=== PATIENT | male | born 2005 ===

== ENCOUNTER 2025-03-19 15:34 | Inpatient (IN) | payer MEDICAID, SELFPAY ==
--- OUTSIDE RECORDS SUMMARY | 2025-03-17 20:20 | XMS_ITS | Encounter Summary ---
Author Organization [facility] Address [address] [address] Care Team Providers Care Auto Top Mechanic Name Role Phone No, Pcp Primary Care Provider Unavailabl e Reason for Visit * Reason Comments Psychiatric Evaluation Encounter Details Date Type Department Care Team (Late st Contact Info) Description 03/17/2025 8:20 PM EDT - 03/19/2025 12:51 PM EDT Emergency [facility] Emergency Medicine [address] [place] [phone] Charlie Muhammad MD [address] [place] [phone] Sade Millard MD [address] [place] [phone] Allison Hunt MD [address] [place] [phone] Anxiety (Primary Dx) Discharge Disposition: Psychiatric Hospital Social History Tobacco Use Types Packs/Day Years Used Date Smoking Tobacco: Never Assessed Humiliation, Afraid, Rape, and Kick questionnair e Answer Date Recorded Within the last year, have y ou been afraid of your partner or ex-partner? No 03/17/2025 Emotionally Abused Not on file 03/17/2025 Physically Abused Not on file 03/17/2025 Sexually Abused Not on file 03/17/2025 Sex and Gender Information Value Date Recorded Sex Assigned at Not on file Legal Sex Male 3:23 AM EST Gender Identity Not on file Sexual Orientation Not on file documented as of this encounter Last Filed Vital Signs Vital Sign Reading Time Taken Comments Blood Pressure 123/76 03/19/2025 8:16 AM EDT Pulse 71 03/19/2025 8:16 AM EDT Temperature 36.4 C (97.6 F) 03/19/2025 8:16 AM EDT Respiratory Rate 16 03/19/2025 8:16 AM EDT Oxygen Saturation 98% 03/18/2025 9:54 PM EDT Inhaled Oxygen Concentration - - Weight - - Height - - Body Mass Index - - documented in this encounter Progress Notes Only the most recent of 4 notes is shown. * Digna Miller - 03/19/2025 9:52 AM EDT Followed up with [facility] who had been reviewing pt last night. They had requested more info on [facility] (U-tox, any meds, EKG). U-tox added to [facility] however [place] is unable to admit anyone else today. Insurance still inactive. documented in this encounter ED Notes Only the most recent of 13 notes is shown. * Luann Christy RN - 03/19/2025 8:18 AM EDT Patient assessment note: awake and alert at this time Assumed care of pt at 7 am. Pt calm, cooperative, INPT BS cont Luann Christy RN 03/19/25 0820 documented in this encounter Miscellaneous Notes * Discharge Note - Allison Hunt MD - 03/19/2025 11:41 AM EDT ED PROFESSIONAL / OBSERVATION DISCHARGE NOTE Freddie Irizarry is a 19 y.o. male who was placed into observation. Please refer to H&P from the date of observation initiation. ED Events Date/Time Event User Comments 03/18/25 0013 Behavioral Health Observation FRANKY CHARLIE Barnhart Power in ED Behavioral Health Observation - [[id number]] 03/18/25 09 ED Prof BH OBS Note Filed ALLISON HUNT PROGRESS filed by Allison Hunt MD 03/19/25 0126 ED Prof BH OBS Note Filed CECILY MIRANDA PROGRESS filed by Cecily Miranda MD 03/19/25 0644 Behavioral Health Observation LUIZ NARVAEZ -- Patient accepted to [facility] Plan: Follow-up instructions and findings during the observation stay have been communicated to thepatient. Based on the patient's assessment and response to treatment, arrangements have been made for the patient following the observation period as per selected ED disposition. Time spent managing discharge: 30 minutes or less. * Plan of Care - Digna Miller - 03/19/2025 10:34 AM EDT Accepted to [facility] at [address] Imtiaz Bullard Accepting facility will call here for nurse to nurse Pt should arrive today 03/19/25 at 1330 * Initial Evaluation - Nedfabrice Connor - 03/18/2025 8:41 AM EDT Initial Evaluation [facility] Patient Name: Freddie Irizarry : 2005 Assessment Date: 03/18/25 Language: Bhutanese Means of Arrival: ambulance Present in Session: patient and fdc through the interview, the pt's Grandmother joined. Communication Factors: none Referral Source: Pt was BIBA from home to [facility] after his GF called 911 from [place]. Referral Source Contact: Girlfriend- Sadie Mariam: [phone] Additional Sources of Information: Grandmother: Christine Yamileth [phone] Chief Complaint: I don't feel like I need to be kept. I can go home with my Grandma. I did tell her if I wasn't with her I wouldn't be with anyone but adamantly denies any SI remark whatsoever. History of Present Illness: Pt is a 19yo male with a diagnostic history of ADHD and MJ use who was BIBA to [facility] ED on a section 12 after his girlfriend called reporting the pt wanted to kill himself. EMS reportedly went to the wrong address and the pt reportedly continued to make SI threats stating he was going to slit his wrist . Pt's girlfriend and children live in [place] but due to arguments, the pt relocated to [facility] and is living w/his Grandmother. The pt adamantly denies SI/HI/AVH and denies any psych hx. Precautions Precautions Initiated/Maintained: Moderate fall risk [place] Screen (C-SSRS) Risk Level: C-SSRS Risk Level: 0 Low Risk (0.5-1.5) Moderate Risk (2-4.5) High Risk (5+) Suicide Inquiry: Suicidal Thoughts (Frequency, Duration, Intensity/Controllability): Pt adamantly denies any currentor recent SI or passive SI. Suicide Plan (timing, location): Pt denies. Pt denies making any threats about cutting his wrists. Availability of Means: Pt denies Preparatory Acts/Behaviors: Pt denies (however girlfriend reports he called her with the shower running and said he was making the first cut Intent (lethality): Pt denies but GF reports pt was insistent. History of Attempts: Yes If Yes, Describe (type of attempt including interrupted, self-interrupted, when, precipitants, means, level of impulsivity, intent, outcome): Pt reports hx of SATT and SIB at 9yo. Risk Behaviors: Past and Current Risk/Safety Assessment Behaviors Risk History and Active Aggressive/Assaultive Not active and denies history, Not active, and Past pt reports past hx when younger Homicidal Ideation/Attempts Not active and denies history Self-Injurious Behavior Not active and denies history, Not active, and Past Pt reports hx of SATT and SIB at 9yo Sexualized Behavior Not active and denies history Elopement Not active and denies history Fire Setting Not active and denies history Property Destruction Not active and Past at 9yo Cruelty to Animals Not active and denies history Pica/Swallowing objects Not active and denies history Somatic Functioning Sleep: unremarkable Weight: no change Appetite: no change Eating Behaviors: unremarkable Energy: developmentally appropriate Additional History Past Psychiatric Care Inpatient Hospitalization: Location: Pt reports hx of 3 admissions in [facility] and 1 in [place] Date oflast hospitalization: last in 2014 # of times: 5 Past Psychiatric Medications: No previous history of past psychiatric medication use Current Treatment for Psychiatric Care Pt denies any current outpt providers or PCP Trauma History No reported history of trauma Social History Lives with: Grandmother x1.5 months. Education Status: high school Employment: Pt reports he is interviewing for jobs Number of Children: 0 Ages of Children: Pt reports his GF has a 4yo daughter that he helped raise. Family Circumstances/Stressors: Pt was living w/his GF of 1.5 years up until a month ago. Pt relocated to stay w/his Grandmother in [facility]. Previous to this he was living in [place] w/his mother for 7 months and also reports hx of living in [place] and [place]. Developmental History: Appropriate Legal Issues: None Sexual History Sexual Orientation: Is your gender identify the same as the one you were assigned at : Significant Substance Use History Pt reports he smoke MJ 3-4x/day. Pt reports rare etoh use where he will have a beer but cannot recall last time. Denies hx of drug use. Family History: No family history on file. No current facility-administered medications for this encounter. No current outpatient medications on file. Side effects noted: N/A Allergies: Not on File PCP: Pcp MD Brittany There is no problem list on file for this patient. No past medical history on file. Mental Status Examination: Pt seen via telepsych. Pt confirmed ID via last name and . Pt observed to be sitting up, alert, well kempt. Pt's Grandmother joined telepsych for portion towards the end. Appearance/behavior: Appears stated age. Well groomed. Good eye contact. Manner: Calm. Cooperative. Orientation: Oriented x 3. Time[address]. Person. Situation. Musculoskeletal: Gait and station normal. Motor: Unremarkable. Speech: Normal volume. Normal rhythm Normal rate Language: Able to repeat words Able to name objects Mood: Pt denies any issues with depression or anxiety. Pt states that sometimes I get a little angry . Affect: Irritable. Thought process: Linear. Logical. Associations: Intact. Thought content: Unremarkable. Perception: No hallucinations. Suicidal ideation: Denies. Pt denies any current or recent SI or passive SI. Pt denies making any SI statements or anything that could be interpreted as such. He states he did say if he wasn't going to be with her, he wouldn't be with anybody. Pt is adamant, I didn't say all that crazy [expletive]that she said. This is crazy. Homicide ideation: Denies. Insight: Developmentally appropriate. Judgement: Developmentally appropriate. Recent and remote memory: Intact long and short term memory. Attention and concentration: Developmentally appropriate. Fund of knowledge: Adequate. This program writer spoke to the pt's Grandmother via telepsych: She denies any MH or SI concerns. She was not home at the time of his call but reports she was shocked when she got word of what was going on. She denies any known hx of SI or SATT. This program writer spoke to the pt's GF in [place]- Sadie Becerra of [employer] in [facility] [phone]: He said he was going to slit his wrists last night during an argument. He asked to say good bye to the child and to tell her that he loved her. He said he was going to slit his wrists. She has a recording of him with the shower running, I'm making the first cut now. Sadie reports that the pt has a bus ticket reportedly purchased for Saturday and insists he is going there but she says she will not be going back with him. Hx of threatening SATT with a knife- once sat in a shower with a giant blade for 3 hours and thentold her I could have killed myself. He never did anything, just told her after. She reports he has said this in the past in the context of one of his girlfriend. No hx of SATT but has been prone to violent outbursts as a minor. (She reports pt's mother had him committed for violent outbursts and was treated in a facility.) She suspects he has untreated mental health and he self-medicates with marijuana. Sadie sent this program writer 9 screenshots of text messages: Without you I have no one You are my forever I'm doing it when they leave (GF previously told this program writer that he told hereover the phone that as soon as the police leave he was going to carry out his plan to slit his wrists and kill himself.) U were my forever witout u there is nothing I just want to tell my child byismael young My last request is to speak to my daughter on last timr [sic] Shell be fine she's getting old she wont reembee ne [sic] I'm over this conversation my mind is made up Im making the first cut I love you sadie Nvm I love you sadie and I always will. Goodbye till me meet again Risk/Protective Factors: General: Male Access to a Gun: No Psychiatric Symptoms: Currently hopeless* Suicidal Behavior: Lethal means available* Harm to Others: None Elopement Risk: None Protective Factors: Family/friends/caregivers willing and able to support patient Adequacy of evaluation and feedback: Have you interviewed informant other than patient?: Yes Are supportive adults available to watch carefully for 24 hours and ensure a follow-up appointment?: No* Is family prepared to remove or secure pills, guns, and other weapons from the home?: Yes Suicide Risk Level: High Aggression Risk Level: Low Elopement Risk Level: Low Formulation/Rationale for Level of Care: Due to the detailed SI plan and repeated expressed intent shared via screenshots of text messages from the girlfriend, the pt is an imminent risk to self and will be held on an involuntary section 12. 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 Client meets level of care Disposition: Inpatient involuntary bed search, section 12, safety protocol in ED. Legal Status: Section 12 Authorization: none I have counseled the patient/family about: the need for supervision until the follow up Disposition and treatment plan options discussed with patient, parent, and/or legal guardian: Yes. Does the patient have any Advanced Psychiatric Directives? No Case, disposition and treatment plan discussed with solar installation supervisor: Yes, Dr. Hunt at 9:25am Total Time: 1.5 hours Signature: Ned Connor [facility] Electronic Signature * ED Update - Sade Millard MD - 03/18/2025 8:25 AM EDT Patient is signed out to me the night of March brought in by police on a section 12 for suicidal statements. The patient is pending crisis evaluation. No medications have been reconciled at this time. No management issues through the night. Crisis evaluation and disposition are pending. documented in this encounter Plan of Treatment Scheduled Orders Name Type Priority Associated Diagnoses Orde r Schedule Urinalysis with reflex to culture Clean Catch Microbiology STAT STAT for 1 Occurrences starting 03/17/2025 until 03/17/2025 documented as of this encounter Procedures Procedure Name Priority Date/Time Associated Diagnosis Comments URINALYSIS WITH REFLEX TO CULTURE Routine 03/17/2025 9:25 PM EDT URINE DRUG SCREEN STAT 03/17/2025 9:2 5 PM EDT COMPREHENSIVE METABOLIC PANEL STAT 03/17/2025 9:25 PM EDT HC AUTO CBC WITH DIFF STAT 03/17/2025 9:25 PM EDT CONVERSION BUPRENORPHINE SUBOXONE SCREEN Routine 03/17/2025 9:25 PM EDT documented in this encounter Results * (ABNORMAL) Urinalysis with reflex to culture (03/17/2025 9:25 PM EDT) Color, Ur Dark Yellow yellow 03/17/2025 9:50 PM EDT [facility] Appearance, Ur Clear slightly cloudy 03/17/2025 9:50 PM EDT [facility] Glucose, Ur negative negative mg/dL 03/17/2025 9:50 PM EDT [facility] Bilirubin, Ur Small(A) negative mg/dL 03/17/2025 9:50 PM EDT [facility] Ketones, Ur 15(A) negative mg/dL 03/17/2025 9:50 PM [facility] Specific [place], Ur 1.031(A) 1.010 - 1.030 03/17/2025 9:50 PM [facility] Blood, Ur negative negative mg/dL 03/17/2025 9:50 PM [facility] pH, Ur 5.5 5.0 - 8.0 03/17/2025 9:50 PM [facility] Protein, Ur 30(A) negative mg/dL 03/17/2025 9:50 PM [facility] Urobilinogen, Ur 1.0 normal E.U./dL 03/17/2025 9:50 PM [facility] Comment:@UF REFLEX Nitrite Level, Ur negative negative 03/17/2025 9:50 PM [facility] Leukocytes Est, Ur Trace(A) negative mg/dL 03/17/2025 9:50 PM [facility] RBC, Ur None Seen 0 - 2 /HPF 03/17/2025 9:52 PM [facility] WBC, Ur 0-5 0 - 5 /HPF 03/17/2025 9:52 PM [facility] Bacteria, Ur None Seen none seen /HPF 03/17/2025 9:52 PM [facility] Squam Epithel, Ur None Seen absent /HPF 03/17/2025 9:52 PM [facility] Hyaline Casts, Ur 0-5 0 - 2 /LPF 03/17/2025 9:52 PM [facility] 03/17/2025 9:25 PM EDT 03/17/2025 9:45 PM EDT us Sara Good MD URINE ORDERABLES Edited Result - Final [facility] [address] [place] [id number], [facility] [address] [place] [phone] * Buprenorphine Suboxone Screen (03/17/2025 9:25 PM EDT) Buprenorphine Suboxone Scrn None Detected 03/17/2025 10:02 PM EDT [facility] 03/17/2025 9:25 PM EDT 03/17/2025 9:45 PM EDT us Sara Good MD LAB BLOOD ORDERABLES Final Resul t [facility] [address] [place] [address], [facility] [address] [place] [address] * (ABNORMAL) Urine Drug Screen (03/17/2025 9:25 PM EDT) Amphetamine Scrn, Ur None Detected 03/17/2025 10:02 PM [facility] Benzodiazepine Screen, Urine None Detected 03/17/2025 10:02 PM [facility] Cannabinoid Screen, Urine POSITIVE SCREEN(A) 03/17/2025 10:02 PM [facility] Cocaine Screen, Ur None Detected 03/17/2025 10:02 PM [facility] Fentanyl Screen, Urine None Detected 03/17/2025 10:02 PM [facility] Comment: This test was developed and its performance characteristics determined by the Clinical Biochemistry Lab. It has not been cleared or approved by the US Food and Drug Administration but the CLIA regulations permit its development under the laboratory license. This test and method is defined in the clinical lab guide and should not be regarded as investigational or research use only. Methadone Screen, Urine None Detected 03/17/2025 10:02 PM [facility] Opiate Screen, Urine None Detected 03/17/2025 10:02 PM [facility] Comment: Note: Drug of abuse immunoassay results are from screening methods. Positive screening results that are not confirmed are reported as POSITIVE SCREEN. If confirmatory testing is desired, it must be requested as a separate order to the Toxicology Lab WITHIN 5 DAYS of sample collection. Unconfirmed screening results should only be used for medical purposes. Oxycodone Scrn, Ur None Detected 03/17/2025 10:02 PM [facility] Urine 03/17/2025 9:25 PM EDT 03/17/2025 9:45 PM EDT us Sara Good MD URINE ORDERABLES Final Result [facility] [address] [place] [address], [facility] [address] [place] [address] * (ABNORMAL) Comprehensive Metabolic Panel (03/17/2025 9:25 PM EDT) Glucose 94 67 - 99 MG/DL 03/17/2025 10:06 PM [facility] BUN 8 6 - 24 MG/DL 03/17/2025 10:06 PM [facility] Creat Level 0.84 0.64 - 1.27 MG/DL 03/17/2025 10:06 PM [facility] eGFR >120 >90 mL/min/1.7 3m exp2 03/17/2025 10:06 PM [facility] Comment:Calculated using the CKD-epi 2020 race-free equation. BUN Creatinine Ratio 03/17/2025 10:06 PM [facility] Sodium 143 135 - 145 mEq/L 03/17/2025 10:06 PM [facility] Potassium 3.5(L) 3.6 - 5.1 mEq/L 03/17/2025 10:06 PM [facility] Chloride 105 98 - 110 mEq/L 03/17/2025 10:06 PM [facility] CO2 21 20 - 29 mEq/L 03/17/2025 10:06 PM [facility] Anion Gap 17(H) 3 - 13 03/17/2025 10:06 PM [facility] Albumin 4.9 3.4 - 5.1 G/DL 03/17/2025 10:06 PM [facility] Alkaline Phosphatase 99 40 - 129 U/L 03/17/2025 10:06 PM [facility] ALT 30 14 - 63 U/L 03/17/2025 10:06 PM [facility] AST (SGOT) 25 15 - 41 U/L 03/17/2025 10:06 PM [facility] Bilirubin, Total 0.7 0.1 - 1.2 mg/dL 03/17/2025 10:06 PM [facility] Calcium 9.9 8.4 - 10.2 MG/DL 03/17/2025 10:06 PM T [facility] Protein, Total 7.5 6.1 - 8.3 g/dL 03/17/2025 10:06 PM [facility] Blood 03/17/2025 9:25 PM EDT 03/17/2025 9:45 PM EDT us Sara Good MD LAB BLOOD ORDERABLES Final Resul t [facility] [address] [place] [address], [facility] [address] [place] [address] * (ABNORMAL) CBC with Diff (03/17/2025 9:25 PM EDT) WBC 14.1(H) 4.2 - 10.0 [id number]/L 03/17/2025 9:50 PM [facility] RBC 5.88(H) 4.50 - 5.60 [id number]/ L 03/17/2025 9:50 PM [facility] Hemoglobin 15.5 13.4 - 16.0 g/dL 03/17/2025 9:50 PM [facility] Hematocrit 48.7 41.2 - 51.0 % 03/17/2025 9:50 PM [facility] MCV 82.8(L) 85.2 - 100.2 fL 03/17/2025 9:50 PM [facility] MCH 26.4(L) 27.0 - 32.4 pg 03/17/2025 9:50 PM [facility] MCHC 31.8 29.5 - 34.2 g/dL 03/17/2025 9:50 PM [facility] RDW 12.9 11.8 - 14.4 % 03/17/2025 9:50 PM [facility] Platelets 312 168 - 382 [id number]/L 03/17/2025 9:50 PM [facility] MPV 9.7 9.6 - 12.5 fL 03/17/2025 9:50 PM [facility] NRBC % 0.0 -1.0 - 0.0 % 03/17/2025 9:50 PM [facility] NRBC (absolute) 0.0 [id number]/L 9:50 PM [facility] Immature Granulocytes % 0.2 % 03/17/2025 9:50 PM [facility] Immature Granulocytes (absolute) 0.0 0.0 - 0.1 [id number]/L 03/17/2025 9:50 PM [facility] Seg Neutrophil % 72.8 % 03/17/20 9:50 PM [facility] Seg Neutrophil (absolute) 10.3(H) 1.9 - 6.7 [id number]/L 03/17/2025 9:50 PM [facility] Lymphocyte % 20.2 % 03/17/2025 9:50 PM [facility] Lymphocyte (absolute) 2.9 1.0 - 3.3 [id number]/L 03/17/2025 9:50 PM [facility] Monocyte % 6.2 % 03/17/2025 9:50 PM [facility] Monocyte (absolute) 0.9 0.3 - 0.9 [id number]/L 03/17/2025 9:50 PM [facility] Eosinophil % 0.3 % 03/17/2025 9:50 PM [facility] Eosinophil (absolute) 0.0 0.0 - 0.4 [id number]/L 03/17/2025 9:50 PM [facility] Basophil % 0.3 % 03/17/2025 9:50 PM [facility] Basophil (absolute) 0.0 0.0 - 0.1 [id number]/L 03/17/2025 9:50 PM [facility] 03/17/2025 9:25 PM EDT 03/17/2025 9:45 PM EDT us Sara Good MD LAB BLOOD ORDERABLES Final Resul t [address] [place] [address], [facility] [address] [place] [address] documented in this encounter Visit Diagnoses Diagnosis Anxiety- Primary Anxiety state, unspecified documented in this encounter Care Teams Auto Top Mechanic Relationship Specialty Start Date End Date No, PcpMD No Address [address] [address] PCP - General Internal Medicine 03/17/25 documented as of this encounter
[2025-03-19 15:43] VITALS: BMI 31.5
--- OUTSIDE RECORDS SUMMARY | 2025-03-19 17:45 | XMS_ITS | Clinical Summary ---
Author Organization [facility] Address [address] [place] [address] Phone Care Team Providers Care Supervisor Molding Name Role Phone Unknown, Unknown MD Primary Care Provider Unavai lable Allergies No known active allergies Medications albuterol 90 mcg/actuation inhaler Inhale 1 puff into the lungs every 4 (four) hours as needed. 2 Inhaler 07/15/2019 Active Active Problems Problem Noted Date Diagnosed Date Mood disorder 06/18/2013 Overview (08/27/2014): Mood disorder Attention deficit hyperactivity disorder, combin ed type 09/03/2012 Overview (08/27/2014): Attention deficit hyperactivity disorder, combined type Obesity 08/18/2008 Overview (08/27/2014): Obesity Asthma 02/04/2006 Overview (08/27/2014): Asthma; *See attached note in LMR; mild intermittent Resolved Problems Problem Noted Date Diagnosed Date Resolved Date Constipation 08/20/2011 05/07/2019 Overview (08/27/2014): Constipation Immunizations Immunization Administration Dates Next Due DTaP, unspecified formulation 09/05/2009, 006,2004 DTaP-Hep B-IPV 2004,2004 [id number] FORMULATION 10/20/2009,03/0 07/2009 HPV9 05/06/2019,04/28/2018 Hepatitis A, ped/adol, 2 dose 02/06/2016, 015 Hepatitis B, unspecified formulation 2004 Hib, unspecified formulation 08/24/2005, 2004,2004,07/23 INFLUENZA, SPLIT VIRUS, TRIV ALENT W/ PRESERVATIVE IM 04/22/2012 Influenza Quadrivalent Prese rvative Free IM 09/09/2020,05/06/2019,03/20/2013 Influenza Quadrivalent w/ Pr eservative IM 03/23/2015 Influenza, Unspecified Formulation 08/20,06/15/2010,09/05/2009,06/09,05/24/2006,08/15/2005,05/24/2005 MMR 09/05/2009,05/24/2005 Meningococcal MCV4P 09/09/2020,02/06/2016 Pneumococcal conjugate, PCV 7 08/24/2005 ,2004,2004,07/23 Polio, Unspecified Formulation 08/18/2008,2004 Tdap 02/06/2016 Varicella 08/18/2008,05/24/2005 Family History Medical History Relation Comments Diabetes Maternal Grandmother ADD / ADHD Unspecified attention defici t disorder; Mat uncle. All men on mother's side of family haven't graduated from . Relation Status Comments Maternal Grandmother Unspecified Social History Tobacco Use Types Packs/Day Years Used Date Smoking Tobacco: Never Smokeless Tobacco: Never Alcohol Use Standard Drinks/Week Comments Never 0 (1 standard drink = 0.6 oz pur e alcohol) Child or Family Care Answer Date Record ed Do you have problems with on e of the following making it difficult for you to work, study, or receive health care? No 05/06/2019 Education Answer Date Recorded Are you interested in more education? Not on quinn e 11/02/2022 Are you concerned about learning? Not on file 11/02/2022 No 11/02/2022 No 11/02/2022 Food Answer Date Recorded Within the past 6 months we worried whether our food would run out before we got money to buy more. Never True 05/06/2019 Within the past 6 months the food we bought just didn't last and we didn't have enough money to get more. Never True 9 Paying for Meds Answer Date Recorded Do you have trouble paying f or your child s medicines? No 05/06/2019 Paying Utility Bills Answer Date Record ed Do you have trouble paying your heating or elect ricity bill? No 05/06/2019 Transportation Answer Date Recorded Has the lack of transportati on kept you from bringing your child to medical appointments or from getting your child s medications? No 05/06/2019 Digital Access Answer Date Recorded No 12/03/2022 No 12/03/2022 Reliable internet access at home? Not on file 12/03/2022 Device with a working camera? Not on file Sex and Gender Information Value Date Recorded Sex Assigned at Not on file Legal Sex Male 6:23 PM EDT Gender Identity Not on file Sexual Orientation Not on file Last Filed Vital Signs Vital Sign Reading Time Taken Comments Blood Pressure 124/72 09/09/2020 2:40 PM EST Pulse 110 06/23/2019 11:33 AM EST Temperature 36.5 C (97.7 F) 06/23/2019 11:33 AM EST Respiratory Rate 24 06/23/2019 11:3 3 AM EST Oxygen Saturation 96% 06/23/2019 11: 33 AM EST Inhaled Oxygen Concentration - - Weight 131.2 kg (289 lb 3.2 oz) 09/09/2020 2:40 PM EST Height 184.2 cm (6' 0.5 ) 09/09/2020 2:40 PM EST Body Mass Index 38.68 09/09/2020 2:40 PM EST Plan of Treatment Health Maintenance Due Date Last Done Comments PEDIATRIC ASTHMA CONTROL DENICE T (ACT) 2008 SMOKING Hx and SMOKELESS TOB ACCO SCREENING 2017 MENINGOCOCCAL VACCINES (B) ( 1 of 2 - Standard) 2020 ADOLESCENT UNIVERSAL LIPID SCREENING 2021 05/15/2019, 03/23/2015 DEPRESSION SCREENING 09/09/2021 09/09/2020, 09/10/19 21 DEVELOPMENTAL/BEHAVIORAL SCR EENING (PHQ, PSC, or SWYC) 09/09/2021 09/09/2020, 09/09/2020, 09/09/2020 HEPATITIS C SCREENING 2022 HIV ONE-TIME SCREENING (18-6 5 YEARS) 2022 PNEUMOCOCCAL VACCINES (0-49 years) (1 of 2 - PCV) 2023 08/24/2005, 2004, 2004, Additional history exists INFLUENZA VACCINE (#1) 2025 , 05/06/2019, 03/23/2015, Additional history exists COVID-19 VACCINE (1 - 2023-2 5 season) 2025 COMBINED DTaP,Tdap,Td (7 - T d or Tdap) 02/05/2026 02/06/2016, 09/05/2009, 08/24/2005, Additional history exists HIB VACCINES Completed 08/24/2005, 11/05, 2004, Additional history exists VARICELLA VACCINES Completed 08/18/2008, 05/24/2005 MMR VACCINES Completed 09/05/2009, 05/24/2005 HEPATITIS A VACCINES Completed 02/06/2016, 03/23/20 15 HPV VACCINES Completed 05/06/2019, 04/28/2018 MENINGOCOCCAL VACCINES (ACWY) Completed 09/09/2020, 02/06/2016 Medical Devices Not on file Procedures Procedure Name Priority Date/Time Associated Diagnosis Comments LIPID PANEL WITH REFLEX TO DIRECT LDL Routine 05/15/2019 7:59 AM EST from Last 3 Months or Most Recently Relevant to Health Maintenance Results * (ABNORMAL) Lipid Panel With Reflex To Direct LDL (05/15/2019 7:59 AM EST) Cholesterol Total 168 <170 mg/dL [email or web address] HDL Cholesterol 36(L) >45 mg/dL [facility] Triglycerides 90(H) <90 mg/dL [facility] LDL Cholesterol 113(H) <110 mg/dL (calc) [facility] Comment: LDL-C is now calculated using the Hardy calculation, which is a validated novel method providing better accuracy than the Friedewald equation in the estimation of LDL-C. Mike MOJICA et al. VAISHALI. 2013;310(19): 3699-5039 (http://education.[employer]Opower/faq/ROK316) Chol/HDLC Ratio 4.7 <5.0 (calc) [facility] Non HDL Cholesterol 132(H) <120 mg/dL (calc) [facility] Comment: For patients with diabetes plus 1 major ASCVD risk factor, treating to a non-HDL-C goal of <100 mg/dL (LDL-C of <70 mg/dL) is considered a therapeutic option. 05/15/2019 7:59 AM EST 05/15/2019 7:59 AM EST Narrative [facility] - 05/15/2019 9:47 PM EST FASTING:YES FASTING: YES Resulting Agency Comment Performing Organization Information: Site ID: [id number] Name: [facility] Address: [address] [place] [address], [place] [address] Director: Shoaib Romano MD Reji Stewart MD LAB BLOOD ORDERABLES Final Res ult [facility] [place] [address],[place] [address], [facility] from Last 3 Months or Most Recently Relevant to Health Maintenance Insurance [facility] Care Teams Supervisor Molding Relationship Specialty Start Date End Date Unknown, Unknown, PCP - General 10/02/23 Additional Source Comments The information contained in this document represents components of the legal health record. It is not the complete legal health record.[facility]
--- OUTSIDE RECORDS SUMMARY | 2025-03-19 17:45 | XMS_ITS | Patient Health Record ---
Author Organization [facility] Address [address] [place] [address] Care Team Providers Care Business Segment Manager Name Role Phone JayeshfallonReji Primary Care Provider Kavya Kaplan Unavailable [phone] Reason For Referral No Information Plan Of Treatment No Information Insurance Providers Payer Name Payer Address Payer Phone Subscriber Number Group Number Insured Name Patient Relationship to Insured Coverage Start Date Coverage End Date [facility] [address] [place] [address] [id number] Freddie Irizarry Self - patient is the insured 4 [place] Medicaid [address] [place] [address] [id number] Freddie Irizarry Self - patient is the insured 4
--- OUTSIDE RECORDS SUMMARY | 2025-03-19 17:45 | XMS_ITS | Clinical Summary ---
Author Organization [facility] Address [address] [place] [address] Care Team Providers Care Fixed Income Manager Name Role Phone No, Pcp MD Primary Care Provider Unavailabl e Medications No known medications Encounters Date Type Department Care Team Description 03/17/2025 8:20 PM EDT - 03/19/2025 12:51 PM EDT Emergency [facility] Emergency Medicine [address] [place] [phone] Charlie Muhammad MD McCann, Erin, MD Howell, Nathan, MD Anxiety (Primary Dx) Discharge [facility]position: [facility] from Last 3 Months Social History Tobacco Use Types Packs/Day Years [...] EDT Inhaled Oxygen Concentration - - Weight 122.9 kg (271 lb) 11/07/2021 3:54 PM EDT Height 190.5 cm (6' 3 ) 11/07/2021 3:54 PM EDT Body Mass Index 33.87 11/07/2021 3:54 PM EDT Plan of Treatment Not on file Procedures Procedure Name Priority Date/Time Associated Diagnosis Comments URINALYSIS WITH REFLEX TO CULTURE Routine 03/17/2025 9:25 PM EDT CONVERSION BUPRENORPHINE SUBOXONE SCREEN Routine 03/17/2025 9:25 PM EDT URINE DRUG SCREEN STAT 03/17/2025 9:2 5 PM EDT COMPREHENSIVE METABOLIC PANEL STAT 03/17/2025 9:25 PM EDT HC AUTO CBC WITH DIFF STAT 03/17/2025 9:25 PM EDT from Last 3 Months Results * (ABNORMAL) Urinalysis with reflex to culture (03/17/2025 9:25 PM EDT) Color, Ur Dark Yellow yellow 03/17/2025 9:50 PM [facility] Appearance, Ur Clear slightly cloudy 03/17/2025 9:50 PM [facility] Glucose, Ur negative negative mg/dL 03/17/2025 9:50 PM [facility] Bilirubin, Ur Small(A) negative mg/dL 03/17/2025 9:50 PM [facility] Ketones, Ur 15(A) negative mg/dL 03/17/2025 9:50 PM [facility] Specific Yulan, Ur 1.031(A) 1.010 - 1.030 03/17/2025 9:50 PM [facility] Blood, Ur negative negative mg/dL 03/17/2025 9:50 PM [facility] pH, Ur 5.5 5.0 - 8.0 03/17/2025 9:50 PM [facility] Protein, Ur 30(A) negative mg/dL 03/17/2025 9:50 PM [facility] Urobilinogen, Ur 1.0 normal E.U./dL 03/17/2025 9:50 PM [facility] Comment:@UF REFLEX Nitrite Level, Ur negative negative 03/17/2025 9:50 PM [facility] Leukocytes Est, Ur Trace(A) negative mg/dL 03/17/2025 9:50 PM [facility] RBC, Ur None Seen 0 - 2 /HPF 03/17/2025 9:52 PM [facility] WBC, Ur 0-5 0 - 5 /HPF 03/17/2025 9:52 PM [facility] Bacteria, Ur None Seen none seen /HPF 03/17/2025 9:52 PM [facility] Squam Epithel, Ur None Seen absent /HPF 03/17/2025 9:52 PM [facility] Hyaline Casts, Ur 0-5 0 - 2 /LPF 03/17/2025 9:52 PM [facility] 03/17/2025 9:25 PM EDT 03/17/2025 9:45 PM EDT Sara Good MD URINE ORDERABLES Edited Result - Final [facility] [address] [place] [address], [facility] [address] [place] [address] * (ABNORMAL) Urine Drug Screen (03/17/2025 9:25 PM EDT) Amphetamine Scrn, Ur None Detected 03/17/2025 10:02 PM [facility] Benzodiazepine Screen, Urine None Detected 03/17/2025 10:02 PM [facility] Cannabinoid Screen, Urine POSITIVE SCREEN(A) 03/17/2025 10:02 PM [facility] Cocaine Screen, Ur None Detected 03/17/2025 10:02 PM [facility] Fentanyl Screen, Urine None Detected 03/17/2025 10:02 PM [facility] Comment: This test was developed [...] Screen, Urine None Detected 03/17/2025 10:02 PM [facility] Opiate Screen, Urine None Detected 03/17/2025 10:02 PM [facility] Comment: Note: Drug of abuse [...] Scrn, Ur None Detected 03/17/2025 10:02 PM [facility] Urine 03/17/2025 9:25 PM EDT 03/17/2025 9:45 PM EDT Sara Good MD URINE ORDERABLES Final Result [facility] [address] [place] [address], [facility] [address] [place] [address] * (ABNORMAL) Comprehensive Metabolic Panel (03/17/2025 9:25 PM EDT) Glucose 94 67 - 99 MG/DL 03/17/2025 10:06 PM [facility] BUN 8 6 - 24 MG/DL 03/17/2025 10:06 PM [facility] Creat Level 0.84 0.64 - 1.27 MG/DL 03/17/2025 10:06 PM [facility] eGFR >120 >90 mL/min/1.7 3m exp2 03/17/2025 10:06 PM [facility] Comment:Calculated using the CKD-epi 2020 race-free equation. BUN Creatinine Ratio 03/17/2025 10:06 PM [facility] Sodium 143 135 - 145 mEq/L 03/17/2025 10:06 PM [facility] Potassium 3.5(L) 3.6 - 5.1 mEq/L 03/17/2025 10:06 PM [facility] Chloride 105 98 - 110 mEq/L 03/17/2025 10:06 PM [facility] CO2 21 20 - 29 mEq/L 03/17/2025 10:06 PM [facility] Anion Gap 17(H) 3 - 13 03/17/2025 10:06 PM [facility] Albumin 4.9 3.4 - 5.1 G/DL 03/17/2025 10:06 PM [facility] Alkaline Phosphatase 99 40 - 129 U/L 03/17/2025 10:06 PM [facility] ALT 30 14 - 63 U/L 03/17/2025 10:06 PM [facility] AST (SGOT) 25 15 - 41 U/L 03/17/2025 10:06 PM [facility] Bilirubin, Total 0.7 0.1 - 1.2 mg/dL 03/17/2025 10:06 PM [facility] Calcium 9.9 8.4 - 10.2 MG/DL 03/17/2025 10:06 PM [facility] Protein, Total 7.5 6.1 - 8.3 g/dL 03/17/2025 10:06 PM [facility] Blood 03/17/2025 9:25 PM EDT 03/17/2025 9:45 PM EDT us Sara Good MD LAB BLOOD ORDERABLES Final Resul t [facility] [address] [place] [address], [facility] [address] [place] [address] * (ABNORMAL) CBC with Diff (03/17/2025 9:25 PM EDT) WBC 14.1(H) 4.2 - 10.0 b99ajp1/L 03/17/2025 9:50 PM [facility] RBC 5.88(H) 4.50 - 5.60 o14pil25/ L 03/17/2025 9:50 PM [facility] Hemoglobin 15.5 13.4 - 16.0 g/dL 03/17/2025 9:50 PM [facility] Hematocrit 48.7 41.2 - 51.0 % 03/17/2025 9:50 PM [facility] MCV 82.8(L) 85.2 - 100.2 fL 03/17/2025 9:50 PM [facility] MCH 26.4(L) 27.0 - 32.4 pg 03/17/2025 9:50 PM [facility] MCHC 31.8 29.5 - 34.2 g/dL 03/17/2025 9:50 PM [facility] RDW 12.9 11.8 - 14.4 % 03/17/2025 9:50 PM [facility] Platelets 312 168 - 382 p80uxc9/L 03/17/2025 9:50 PM [facility] MPV 9.7 9.6 - 12.5 fL 03/17/2025 9:50 PM [facility] NRBC % 0.0 -1.0 - 0.0 % 03/17/2025 9:50 PM [facility] NRBC (absolute) 0.0 m21mwx1/L 9:50 PM [facility] Immature Granulocytes % 0.2 % 03/17/2025 9:50 PM [facility] Immature Granulocytes (absolute) 0.0 0.0 - 0.1 m21ska4/L 03/17/2025 9:50 PM [facility] Seg Neutrophil % 72.8 % 03/17/20 9:50 PM [facility] Seg Neutrophil (absolute) 10.3(H) 1.9 - 6.7 y35yle9/L 03/17/2025 9:50 PM [facility] Lymphocyte % 20.2 % 03/17/2025 9:50 PM [facility] Lymphocyte (absolute) 2.9 1.0 - 3.3 h41enj5/L 03/17/2025 9:50 PM [facility] Monocyte % 6.2 % 03/17/2025 9:50 PM [facility] Monocyte (absolute) 0.9 0.3 - 0.9 b58gkz9/L 03/17/2025 9:50 PM EDT [facility] Eosinophil % 0.3 % 03/17/2025 9:50 PM EDT [facility] Eosinophil (absolute) 0.0 0.0 - 0.4 y57evy2/L 03/17/2025 9:50 PM EDT [facility] Basophil % 0.3 % 03/17/2025 9:50 PM EDT [facility] Basophil (absolute) 0.0 0.0 - 0.1 l92any2/L 03/17/2025 9:50 PM EDT [facility] 03/17/2025 9:25 PM EDT 03/17/2025 9:45 PM EDT us Sara Good MD LAB BLOOD ORDERABLES Final Resul t Performing Organization Address City/[facility] Co de Phone Number [facility] [address] [place] [address], [facility] [address] [place] [address] * Buprenorphine Suboxone Screen (03/17/2025 9:25 PM EDT) Buprenorphine Suboxone Scrn None Detected 03/17/2025 10:02 PM EDT [facility] 03/17/2025 9:25 PM EDT 03/17/2025 9:45 PM EDT us Sara Good MD LAB BLOOD ORDERABLES Final Resul t Performing Organization Address [facility] de Phone Number [facility] [address] [place] [address], [facility] [address] [place] [address] from Last 3 Months Insurance MEDICAID PENDING [facility] Care Teams Fixed Income Manager Relationship Specialty Start Date End Date No, MD Suma No Address [place] [address] PCP - General Internal Medicine 03/17/25
--- OUTSIDE RECORDS SUMMARY | 2025-03-19 17:45 | XMS_ITS ---
Author Name [facility] Organization Unknown Encounters Encounter Type Encounter Reason Primary Diagnosis Location Date Emergency Anxiety Anxiety [facility] Care Team Organization Name Specialty Phone Email Start Date End Da te [facility] 03/18/2025
--- OUTSIDE RECORDS SUMMARY | 2025-03-19 17:45 | XMS_ITS | Encounter Summary ---
Author Organization [facility] Address [address] [place] [address] Phone Care Team Providers Care Woodwind Instrument Repairer Name Role Phone Unknown, Unknown Primary Care Provider Reji Briceño MD Unavailable [phone] Reji Stewart MD Unavailable [phone] Reji Stewart MD Primary Care Provider [phone] Reji Stewart MD Unavailable [phone] Reji Stewart MD Primary Care Provider [phone] Reji Stewart MD Unavailable [phone] Unknown, Unknown Primary Care Provider Abhi coelho Encounter Details Date Type Department Care Team (Late st Contact Info) Description 01/06/2015 Community Orders [facility] Winnie Higuera MD [address] [place] [phone] [email or web address] Social History Tobacco Use Types Packs/Day Years Used Date Smoking Tobacco: Never Assessed Sex and Gender Information Value Date Recorded Sex Assigned at Not on file Legal Sex Male 6:23 PM EDT Gender Identity Not on file Sexual Orientation Not on file documented as of this encounter Plan of Treatment Not on file documented as of this encounter Visit Diagnoses Not on filedocumented in this encounter Care Teams Woodwind Instrument Repairer Relationship Specialty Start Date End Date Unknown, Unknown, PCP - General 12/18/14 03/24/19 Reji Stewart MD [address] [address] PCP - General Pediatrics 03/25/19 11/08/22 Reji Stewart MD [address] [place] [address] [place] [address] PCP - General 11/29/22 10/01/23 Unknown, Unknown, MD PCP - General 10/02/23 Reji Stewart MD [address] [place] [address] [place] [address] Historical LMR Provider 12/23/16 11/08/22 Reji Stewart MD [address] [place] [address] [place] [address] Insurance Assigned Provider 08/31/17 Reji Stewart MD [address] [place] [address] [place] [address] Insurance Assigned Provider 08/07/19 Reji Stewart MD [address] [place] [address] [place] [address] Insurance Assigned Provider 08/07/1912/15 documented as of this encounter Additional Source Comments The information contained in this document represents components of the legal health record. It is not the complete legal health record.[facility]
--- NOTE | 2025-03-19 18:48 | PC.ADMIT ---
Freddie is a 19 yr old male admitted to [facility] at approx 15:45 from [facility]. He was BIBA from home after his girlfriend called 911 from [place]. She was concerned because Freddie had been making suicidal threats to cut his wrists. Freddie is A&O x 4, calm and cooperative with the admission process. He appears anxious, is engaged with good eye contact, very pleasant & polite. He denies SI/HI/AVH and is able to contract for safety here on the unit. Freddie states he?d been living with his girlfriend and their two children in [place]. After recent relationship troubles he relocated to stay in [place] with his grandmother, while his gf & kids are staying in [place]. Current housing with grandmother is stable. Freddie endorses trauma history but declines to discuss detail. He states that his suicidal statements were just words. ?I was feeling desperate. She is my whole world and I feel like I?ve lost everything.?? Freddie denies medical history. ADHD is documented on transfer notes but he doesn?t take any rx?d medications. He drinks occasionally & smokes marijuana a few times/week. Tox screen positive only for cannabinoids. His skin check is unremarkable. Freddie was oriented to the unit & placed on 15 min safety checks.? Freddie signed in on a CV & subsequently signed a three day notice (which will be up 03/24). Freddie has settled in well to the unit, attended a group & ate dinner. He was later found in his room writing in a journal & crying. He stated ?I?m fine. Just going through a lot.?? Freddie brightened up & joined the milieu shortly after.
[2025-03-19 19:57] VITALS: BP 160/77; PULSE 113; RESP 18; TEMP 36.8; O2SAT 94
--- NOTE | 2025-03-20 06:29 | HO.PM.IMCN ---
History of Present Illness Data of Consult Service Date: 03/20/25 Requesting physician: Imtiaz Bullard Primary Care Provider: Unknown Physician HPI Reason for consult: medical H&P pt is a 19 yo male with no significant pmhx admitted to adult [facility] for SI. Patient reports vaping 2-3 times per week, marijuana use, social occasional alcohol. pt has no medical complaints currently. no chest pain, SOB, nausea,vomiting, rash, headache, abd pain or urinary sx. Review of Systems Constitutional: Constitutional: Denies body ache(s), Denies chills, Denies fatigue, Denies fever(s) and Denies headache(s) Eyes: Eyes: Denies change in vision ENT: Denies headache(s), Denies nasal congestion and Denies sore throat Cardiovascular: Cardiovascular: Denies chest pain, Denies rapid heart rate, Denies leg edema, Denies lightheadedness and Denies dyspnea Respiratory: Respiratory: Denies cough, Denies dyspnea and Denies wheezing Gastrointestinal: Gastrointestinal: Denies abdominal pain, Denies diarrhea, Denies nausea and Denies vomiting Genitourinary: Genitourinary: Denies hematuria, Denies dysuria and Denies urinary urgency Musculoskeletal: Musculoskeletal: Denies myalgias Integumentary/Breasts: Skin/Breast: Denies rash Neurologic: Denies confusion and Denies headache(s) Psychiatric: Psychiatric: Denies confusion Endocrine: Endocrine: Denies fatigue Hematologic/Lymphatic: Hematologic/Lymphatic: Denies easy bleeding and Denies easy bruising Allergic/Immunologic: Allergic/Immunologic: Denies wheezing PMFSH Functional capacity: independent ambulation Social History Household Members: Other Household Members Other:: lives with grandmother Do you presently have visiting nurse or other home services: No Patient Tobacco Use Status: Current someday Tobacco user Smoked in Last 30 Days: Yes e-Cigarette/Vaping Use: Currently Using Frequency of e-Cigarette/Vaping Use: few times/week Patient Interested in Nicotine Replacement: No Patient Given Instructions on How to Stop Smoking: No Second Hand Smoke Exposure: No Currently Displaying Signs/Symptoms of Drug Intoxication Withdrawal: No Have you been hit, kicked, punched, or otherwise hurt by someone within the past year? If so, by whom?: No Do you feel safe in your current relationship?: No Current Relationship Is there a partner from a previous relationship who is making you feel unsafe now?: No Are you made to feel afraid or neglected: No Advance Directives: No Advance Directives Information Provided: No Do you have thoughts of harming others: None Do you have a plan to hurt others: No Plan Recently lost weight without trying: No Eating poorly because of decreased appetite: No Nutrition Risks: No Nutritional Risk Poor oral hygiene: No Narrative: vapes nicotine 2-3x/week. smokes marijuana multiple times daily. social occasional etoh. Meds Allergies Allergy/AdvReac Type Severity Reaction Status Date / Time seafood Allergy Anaphylaxis Verified 03/19/25 17:02 Active Medications: Current Medications Acetaminophen (Acetaminophen 325 Mg Tablet) 650 mg PO Q6H PRN PRN Reason: Headache/Pain, Scale 1-10 Al Hydroxide/Mg Hydroxide (Magnesium Hydrox/Alum Hydrox 30 Ml Oral.Susp) 30 ml PO Q6H PRN PRN Reason: Heartburn/Nausea Hydroxyzine HCl (Hydroxyzine Hcl 25 Mg Tablet) 25 mg PO Q6H PRN PRN Reason: mild anxiety Magnesium Hydroxide (Milk Of Magnesia 30 Ml Oral.Susp) 30 ml PO DAILY PRN PRN Reason: Constipation Melatonin (Melatonin 3 Mg Tablet) 9 mg PO BEDTIME TAI Last Admin: 03/19/25 21:41 Dose: 9 mg Nicotine (Nicotine 21 Mg Patch.Td24) 21 mg TRANSDERMA DAILY PRN PRN Reason: nicotine craving Nicotine Polacrilex (Nicotine Polacrilex 2 Mg Gum) 2 mg BUCCAL Q2H PRN PRN Reason: Nicotine Cravings Olanzapine (Olanzapine 5 Mg Tablet) 5 mg PO BID PRN PRN Reason: agitation Trazodone HCl (Trazodone Hcl 50 Mg Tablet) 50 mg PO BEDTIME MRX1 PRN PRN Reason: Insomnia Home Medications ?Medication ?Instructions ?Recorded ?Confirmed ?Last Taken ?Type No Known Home Meds 03/19/25 03/19/25 Unknown History Physical Exam Vital Signs and Narrative: Vital Signs: Last Vital Signs Temp 98.2 F 03/19/25 19:57 Pulse 113 H 03/19/25 19:57 Resp 18 03/19/25 19:57 BP 160/77 H 03/19/25 19:57 Pulse Ox 94 03/19/25 19:57 O2 Del Method Room Air 03/19/25 19:57 BMI result Body Mass Index 31.5 General: AOx3, no acute distress Resp: CTA bilaterally CVS: S1, S2, RRR GI: +BS, NT, no distention Skin: Warm, dry Neuro: Cranial nerves II-XII grossly intact bilaterally. Motor grossly intact bilaterally. stength and sensation bilateral upper and lower extremities equal throughout. Extremities: No LE edema Psych: Appropriate affect Const: General: No confusion Orientation/consciousness: No confusion Neuro: General: No confusion Assessment and Plan (1) Medical clearance for psychiatric admission: Status: Acute Plan pt is a 19 yo male with no significant pmhx admitted to adult psych for SI. SI/mood - plan per psych elevated blood pressure reading - BP elevated on arrival - no hx of HTN, may be related to stress and anxiety - continue to monitor tobacco use - smoking cessation encouraged - pt declines nicotine Thank you for allowing me to participate in the pt's care. Signing off. Please contact the medical team if any questions or concerns.
[2025-03-20 08:00] VITALS: BP 122/65; PULSE 50; RESP 16; TEMP 36.9; O2SAT 99
[2025-03-20 08:16] LABS: Hemoglobin A1C 123.9242 umol/L; Total Hemoglobin (HGBA1C) 3990.2384 umol/L
[2025-03-20 08:30] LABS: Alanine Aminotransferase 39 U/L (0-40); Albumin Level 5.1 g/dL (3.5-5.0); Alkaline Phosphatase 99 U/L (39-117); Anion Gap 16 (12-20); Aspartate Amino Transferase 29 U/L (5-37); Blood Urea Nitrogen 14 mg/dL (9-16); Calcium 9.9 mg/dL (8.4-10.2); Carbon Dioxide 25 mmol/L (22-29); Chloride 103 mmol/L (96-108); Cholesterol 185 mg/dL (<200); Creatinine Clr Calc Pharmacy 184.7; Estimated Glomerular Filt Rate > 60; HDL Cholesterol 43 mg/dL (>40); Potassium 3.6 mmol/L (3.3-5.1); Sodium 140 mmol/L (135-145); Total Protein 7.9 g/dL (6.5-8.0); Triglycerides 68 mg/dL (<150)
[2025-03-20 08:46] LABS: Free T4 (Free Thyroxine) 1.35 ng/dL (0.71-1.85); Thyroid Stimulating Hormone 1.32 uIU/mL (0.32-4.0)
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
[2025-03-20 19:59] VITALS: BP 129/71; PULSE 63; RESP 18; TEMP 37.1; O2SAT 100
[2025-03-21 08:00] VITALS: BP 115/59; PULSE 48; RESP 16; TEMP 36.3; O2SAT 95
--- NOTE | 2025-03-21 16:56 | HO.PSYCHPN ---
Subjective Subjective Date of Service: 03/21/25 Reason For Visit: SI and depression Subjective Notes: Conditional Voluntary and 3 Day (due 03/24) Healthcare Proxy: No Guardianship: No Medical Problems Affecting Mental Status: No Interim History: Patient seen in his room this afternoon. He presented with full range of affect, reporting good mood and denying SI/HI/AVH. He states that he talked with his daughter and that this significantly brightened his day. He said he sent a message to his fianc?, but he hasn't heard back from her. He states that he is sleeping well with the melatonin. He is going to groups and socializing with peers. He is hopeful for discharge this week. He does not want to take a scheduled psychotropic medication at this time. Medication Compliance: Yes Side effects from medications: No Attending Groups: Yes Review of Systems Acute medical concerns: No Medical Review of Systems: unchanged Review of Systems Review of Systems Yes all other systems are reviewed and are negative Mental Status Exam Mental Status Exam Narrative: Patient Appearance: Well Groomed, adequate hygiene Patient Behavior: Appropriate Level of Consciousness: Awake, alert Patient Orientation: Person, Place and Time, situational context Memory: grossly intact to recent events Psychomotor: no agitation or slowing Speech: normal rate, tone, volume Mood: ?good? Affect: appropriate range Thought Process: Goal Oriented Thought Content: denies SI/HI; focused on treatment questions Hallucinations: Denies; does not appear preoccupied Delusions: None evinced Insight: mild impairment Judgment: mild impairment Impulsivity: low Diagnostics Vital Signs (24Hr): Vital Signs - 24 hr 03/20/25 19:59 03/21/25 08:00 Temperature 98.7 F 97.3 F Pulse Rate 63 48 L Respiratory Rate 18 16 Blood Pressure 129/71 115/59 L Pulse Oximetry 100 95 Oxygen Delivery Method Room Air BMI result Body Mass Index 31.5 Labs 03/20/25 07:34 Labs: Laboratory Results - last 48 hr 03/20/25 07:34 Sodium 140 Potassium 3.6 Chloride 103 Carbon Dioxide 25 Anion Gap 16 BUN 14 Creatinine 0.87 Estim Creat Clear Calc 184.7 Estimated GFR > 60 Random Glucose 85 Estimat Average Glucose 97 Hemoglobin A1c % 5.0 Calcium 9.9 Total Bilirubin 0.7 AST 29 ALT 39 Alkaline Phosphatase 99 Total Protein 7.9 Albumin 5.1 H Triglycerides 68 Cholesterol 185 LDL Cholesterol, Calc 129 H HDL Cholesterol 43 TSH 1.32 Free T4 1.35 Medications Medications Current Medications Acetaminophen (Acetaminophen 325 Mg Tablet) 650 mg PO Q6H PRN PRN Reason: Headache/Pain, Scale 1-10 Al Hydroxide/Mg Hydroxide (Magnesium Hydrox/Alum Hydrox 30 Ml Oral.Susp) 30 ml PO Q6H PRN PRN Reason: Heartburn/Nausea Hydroxyzine HCl (Hydroxyzine Hcl 25 Mg Tablet) 25 mg PO Q6H PRN PRN Reason: mild anxiety Magnesium Hydroxide (Milk Of Magnesia 30 Ml Oral.Susp) 30 ml PO DAILY PRN PRN Reason: Constipation Melatonin (Melatonin 3 Mg Tablet) 9 mg PO BEDTIME TAI Last Admin: 03/20/25 21:52 Dose: 9 mg Nicotine Polacrilex (Nicotine Polacrilex 2 Mg Gum) 2 mg BUCCAL Q2H PRN PRN Reason: Nicotine Cravings Olanzapine (Olanzapine 5 Mg Tablet) 5 mg PO BID PRN PRN Reason: agitation Trazodone HCl (Trazodone Hcl 50 Mg Tablet) 50 mg PO BEDTIME MRX1 PRN PRN Reason: Insomnia Allergies Allergies Allergy/AdvReac Type Severity Reaction Status Date / Time seafood Allergy Anaphylaxis Verified 03/19/25 17:02 Assessment & Plan Assessment & Plan (1) Mood disorder: Status: Acute Code(s): F39 - Unspecified mood [affective] disorder Plan DSM-5 Diagnosis Unspecified Mood Disorder Trauma and Stressor related disorder, r/o PTSD r/o Cannabis Use Disorder r/o Alcohol Use Disorder PLAN continue on M5 legal status: CV patient signed 3 day discharge request due for resolution no later than Saturday03/24/25 safety checks: every 15 minutes encourage to neurotic spectrum psychosocial groups no scheduled medications at this time Patient educated on: diagnosis and medication risk/benefits Informed Consent: understands Reason for continued inpatient stay Substantial Risk for: harm to self and rapid decompensation Time Spent With Patient Time: Total time managing care of this patient today __15__ minutes.
[2025-03-21 19:54] VITALS: BP 138/62; PULSE 84; RESP 15; TEMP 37.3; O2SAT 98
[2025-03-22 07:43] VITALS: BP 155/89; PULSE 82; TEMP 36.4; O2SAT 100
--- NOTE | 2025-03-22 10:15 | HO.PSYCHPN ---
Subjective Subjective Date of Service: 03/22/25 Reason For Visit: SI and depression Interim History: sleeping, easily rousable. pleasant, cooperative. no requests or complaints. slept well with melatonin. does not want to have scheduled meds otherwise. aware of 3-day notice coming due weds, expecting to leave weds. Mental Status Exam Mental Status Exam Narrative: Patient Appearance: Well Groomed, adequate hygiene Patient Behavior: Appropriate Level of Consciousness: Awake, alert Patient Orientation: Person, Place and Time, situational context Memory: grossly intact to recent events Psychomotor: no agitation or slowing Speech: normal rate, tone, volume Mood: ?good? Affect: appropriate range Thought Process: Goal Oriented Thought Content: denies SI/HI; focused on treatment questions Hallucinations: Denies; does not appear preoccupied Delusions: None evinced Insight: mild impairment Judgment: mild impairment Impulsivity: low Diagnostics Vital Signs (24Hr): Vital Signs - 24 hr 03/21/25 19:54 03/22/25 07:43 Temperature 99.1 F 97.6 F Pulse Rate 84 82 Respiratory Rate 15 Blood Pressure 138/62 155/89 H Pulse Oximetry 98 100 Oxygen Delivery Method Room Air BMI result Body Mass Index 31.5 Labs 03/20/25 07:34 Medications Medications Current Medications Acetaminophen (Acetaminophen 325 Mg Tablet) 650 mg PO Q6H PRN PRN Reason: Headache/Pain, Scale 1-10 Al Hydroxide/Mg Hydroxide (Magnesium Hydrox/Alum Hydrox 30 Ml Oral.Susp) 30 ml PO Q6H PRN PRN Reason: Heartburn/Nausea Hydroxyzine HCl (Hydroxyzine Hcl 25 Mg Tablet) 25 mg PO Q6H PRN PRN Reason: mild anxiety Magnesium Hydroxide (Milk Of Magnesia 30 Ml Oral.Susp) 30 ml PO DAILY PRN PRN Reason: Constipation Melatonin (Melatonin 3 Mg Tablet) 9 mg PO BEDTIME TAI Last Admin: 03/21/25 21:51 Dose: 9 mg Nicotine Polacrilex (Nicotine Polacrilex 2 Mg Gum) 2 mg BUCCAL Q2H PRN PRN Reason: Nicotine Cravings Olanzapine (Olanzapine 5 Mg Tablet) 5 mg PO BID PRN PRN Reason: agitation Trazodone HCl (Trazodone Hcl 50 Mg Tablet) 50 mg PO BEDTIME MRX1 PRN PRN Reason: Insomnia Allergies Allergies Allergy/AdvReac Type Severity Reaction Status Date / Time seafood Allergy Anaphylaxis Verified 03/19/25 17:02 Assessment & Plan Assessment & Plan (1) Mood disorder: Status: Acute Code(s): F39 - Unspecified mood [affective] disorder Plan DSM-5 Diagnosis Unspecified Mood Disorder Trauma and Stressor related disorder, r/o PTSD r/o Cannabis Use Disorder r/o Alcohol Use Disorder PLAN continue on M5 legal status: CV patient signed 3 day discharge request due for resolution no later than Saturday03/24/25 safety checks: every 15 minutes encourage to neurotic spectrum psychosocial groups no scheduled medications at this time 03/22: calm, stable, pleasant. denies problems. expecting to discharge upon expiry of 3-day notice. declines scheduled psych meds. continue observation and engagement. Reason for continued inpatient stay Substantial Risk for: harm to self Time Spent With Patient Time: Total time managing care of this patient today __25__ minutes.
[2025-03-22 20:00] VITALS: BP 142/68; PULSE 66; TEMP 36.4; O2SAT 98
[2025-03-23 08:00] VITALS: BP 132/65; PULSE 71; RESP 18; TEMP 36.9; O2SAT 100
--- NOTE | 2025-03-23 11:51 | HO.PSYCHPN ---
Subjective Subjective Date of Service: 03/23/25 Reason For Visit: SI and depression Interim History: Napping throughout the morning. keeping to self. Patient reports feeling good ; pt stated, I'm just sleeping to pass the time. I'll go to a group later . Denies any issues at this time. Patient reports he plans on returning home on discharge. denies SI/HI/VH/AH. continue tx plan. Attending Groups: Intermittent Mental Status Exam Mental Status Exam Patient Appearance: Appropriate Patient Orientation: Person, Place, Time and Situation Level of Consciousness: Drowsy Patient Behavior: Cooperative and Good Eye Contact Mood Description: Calm Affect Description: Calm Ability to Follow Directions: Good Speech Pattern: Clear Memory Description: Intact Hallucinations: None Delusions: Not Present Thought Process: Intact Thought Content: positive for Intact Diagnostics Vital Signs (24Hr): Vital Signs - 24 hr 03/22/25 20:00 03/23/25 08:00 Temperature 97.5 F 98.4 F Pulse Rate 66 71 Respiratory Rate 18 Blood Pressure 142/68 H 132/65 Pulse Oximetry 98 100 Oxygen Delivery Method Room Air Room Air BMI result Body Mass Index 31.5 Labs 03/20/25 07:34 Medications Medications Current Medications Acetaminophen (Acetaminophen 325 Mg Tablet) 650 mg PO Q6H PRN PRN Reason: Headache/Pain, Scale 1-10 Al Hydroxide/Mg Hydroxide (Magnesium Hydrox/Alum Hydrox 30 Ml Oral.Susp) 30 ml PO Q6H PRN PRN Reason: Heartburn/Nausea Clonidine HCl (Clonidine Hcl 0.1 Mg Tablet) 0.05 mg PO Q4H PRN; Protocol PRN Reason: anxiety/overwhelm Diphenhydramine HCl (Diphenhydramine Hcl 25 Mg Capsule) 50 mg PO Q6H PRN PRN Reason: Allergic Symptoms Epinephrine (Epinephrine 1 Mg/Ml Vial) 0.2 mg IM DAILY PRN PRN Reason: anaphylaxis Hydroxyzine HCl (Hydroxyzine Hcl 25 Mg Tablet) 25 mg PO Q6H PRN PRN Reason: mild anxiety Last Admin: 03/22/25 21:51 Dose: 25 mg Magnesium Hydroxide (Milk Of Magnesia 30 Ml Oral.Susp) 30 ml PO DAILY PRN PRN Reason: Constipation Melatonin (Melatonin 3 Mg Tablet) 9 mg PO BEDTIME TAI Last Admin: 03/22/25 22:56 Dose: 9 mg Nicotine Polacrilex (Nicotine Polacrilex 2 Mg Gum) 2 mg BUCCAL Q2H PRN PRN Reason: Nicotine Cravings Olanzapine (Olanzapine 5 Mg Tablet) 5 mg PO BID PRN PRN Reason: agitation Trazodone HCl (Trazodone Hcl 50 Mg Tablet) 50 mg PO BEDTIME MRX1 PRN PRN Reason: Insomnia Allergies Allergies Allergy/AdvReac Type Severity Reaction Status Date / Time seafood Allergy Anaphylaxis Verified 03/19/25 17:02 Assessment & Plan Assessment & Plan (1) Mood disorder: Status: Acute Code(s): F39 - Unspecified mood [affective] disorder Plan DSM-5 Diagnosis Unspecified Mood Disorder Trauma and Stressor related disorder, r/o PTSD r/o Cannabis Use Disorder r/o Alcohol Use Disorder PLAN continue on M5 legal status: CV patient signed 3 day discharge request due for resolution no later than Saturday03/24/25 safety checks: every 15 minutes encourage to neurotic spectrum psychosocial groups no scheduled medications at this time 03/22: calm, stable, pleasant. denies problems. expecting to discharge upon expiry of 3-day notice. declines scheduled psych meds. continue observation and engagement. 03/23: Napping throughout the morning. keeping to self. Patient reports feeling good ; pt stated, I'm just sleeping to pass the time. I'll go to a group later . Denies any issues at this time. Patient reports he plans on returning home on discharge. denies SI/HI/VH/AH. continue tx plan. Patient educated on: diagnosis and medication risk/benefits Reason for continued inpatient stay Substantial Risk for: med/psych decompensation Time Spent With Patient Time: Total time managing care of this patient today _15___ minutes.
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
[2025-03-23 20:00] VITALS: BP 126/64; PULSE 53; RESP 18; TEMP 36.4; O2SAT 98
[2025-03-24 08:00] VITALS: BP 132/81; PULSE 60; RESP 15; TEMP 36.6; O2SAT 100
== END 2025-03-24 10:39 | disposition home or self-care (01) | DRG 755 ==
PROVIDERS: Nurse Practitioner Psychiatric/Mental Health; Admitting Provider Psychiatry & Neurology Psychiatry; Visit Provider Psychiatry & Neurology Psychiatry
DX: F43.10 Post-traumatic stress disorder, unspecified (principal); F10.90 Alcohol use, unspecified, uncomplicated; F12.90 Cannabis use, unspecified, uncomplicated; F17.210 Nicotine dependence, cigarettes, uncomplicated; F39 Unspecified mood [affective] disorder; Z71.6 Tobacco abuse counseling
CPT/HCPCS: 36415; 80053; 80061; 83036; 84439; 84443

== ENCOUNTER → 2025-03-19 15:34 | Outpatient (BNV) | payer OTHER, SELFPAY | PROVIDERS: Admitting Provider Psychiatry & Neurology Psychiatry; Visit Provider Psychiatry & Neurology Psychiatry | DX: F39 Unspecified mood [affective] disorder (principal) | CPT/HCPCS: 99231; 99232 ==

== ENCOUNTER → 2025-03-19 15:34 | Outpatient (BNV) | payer MEDICAID, SELFPAY | PROVIDERS: Admitting Provider Psychiatry & Neurology Psychiatry; Visit Provider Physician Assistant | DX: Z00.8 Encounter for other general examination (principal) | CPT/HCPCS: 99222 ==